=== PATIENT | male | born 1970 | race Caucasian/White ===

== ENCOUNTER 2017-11-17 14:06 | Emergency (ER) | payer SELFPAY ==
[2017-11-17] MEDS ORDERED: Acetaminophen/HYDROcodone 325-10 MG Tab PO ONE (14:40)
--- NOTE | 2017-11-17 14:47 | EDM.PDOC ---
ED HPI GENERAL MEDICAL PROBLEM - General Chief Complaint: Back Pain or Injury Stated Complaint: BACK PAIN Time Seen by Provider: 11/17/17 14:26 Source of Information: Reports: Patient History Limitations: Reports: No Limitations - History of Present Illness INITIAL COMMENTS - FREE TEXT/NARRATIVE: Patient is a 47-year-old male who presents to the ED complaining of low back pain. Patient has a history of chronic low back pain secondary to nerve impingement at the L5-S1 junction. He is scheduled to have a nerve block completed on 25 November in [place]. He was supposed to see his primary care provider Dr. Bautista yesterday at 1330 for additional prescription for narcotics. Patient had to cancel this appt since his work required him to stay longer. Thus has ran out of the hydrocodone 10-325mg. Last prescription was filled October 23, 2017. This was for hydrocodone with acetaminophen 10-325 one tab 3 times a day as needed for pain. May take one extra tablet every day if needed. He had 100 times. Patient states the pain to his low back is no different than previously. Denies any saddle anesthesia or incontinence to urine or stool. There is no numbness/tingling to his lower extremities. Lower Back Pain Score (Numeric/FACES): 8 - Related Data Allergies Allergy/AdvReac Type Severity Reaction Status Date / Time No Known Allergies Allergy Verified 11/17/17 14:13 Home Meds: Home Meds Hydrocodone/Acetaminophen [Hydrocodon-Acetaminophn 10-325] 1 each PO TID PRN # 15 tablet 11/17/17 [Rx] Past Medical History Musculoskeletal History: Reports: Back Pain, Chronic, Other (See Below) Other Musculoskeletal History: chronic pain between shoulder blades, states for years - Past Surgical History HEENT Surgical History: Reports: Tonsillectomy Other Musculoskeletal Surgeries/Procedures:: L5-S1 bone on bone Social & Family History - Family History Family Medical History: Noncontributory - Tobacco Use Smoking Status *Q: Current Every Day Smoker Years of Tobacco use: 25 Packs/Tins Daily: 2 - Caffeine Use Caffeine Use: Reports: Coffee - Recreational Drug Use Recreational Drug Use: No ED ROS GENERAL - Review of Systems Review Of Systems: ROS reveals no pertinent complaints other than HPI. ED EXAM,LOWER BACK PAIN/INJURY - Physical Exam Exam: See Below Exam Limited By: No Limitations General Appearance: Alert, WD/WN, No Apparent Distress Ears: Hearing Grossly Normal Nose: Normal Inspection Throat/Mouth: Normal Voice, No Airway Compromise Neck: Normal Inspection, Supple Respiratory/Chest: No Respiratory Distress, Lungs Clear, Normal Breath Sounds Cardiovascular: Normal Peripheral Pulses, Regular Rate, Rhythm Extremities: Normal Inspection, Normal Range of Motion, Non-Tender Neurological: Alert, Normal Mood/Affect, Normal Dorsiflexion, Normal Plantar Flexion, No Motor/Sensory Deficits, Oriented x 3. No: Straight Leg Raise (L), Straight Leg Raise (R) Psychiatric: Normal Affect, Normal Mood Skin Exam: Warm, Dry, Intact, Normal Color Course - Vital Signs Last Recorded V/S: Last Vital Signs Temp 99.3 F 11/17/17 14:16 Pulse 89 11/17/17 14:16 Resp 16 11/17/17 14:16 BP 131/83 11/17/17 14:16 Pulse Ox 98 11/17/17 14:16 - Orders/Labs/Meds Meds: Medications Discontinued Medications Generic Name Dose Route Start Last Admin Trade Name Adam PRN Reason Stop Dose Admin Hydrocodone Bitart/Acetaminophen 1 tab 11/17/17 14:40 11/17/17 14:53 [place] 325-10 Mg PO 11/17/17 14:41 1 tab ONETIME ONE Administration - Re-Assessments/Exams Free Text/Narrative Re-Assessment/Exam: i did confirm patient had a appt with dr. Bautista for yesterday at 1330. Unable to pull his narcotic prescription list from [place] [facility]. Patient has a ride. Appears patient story is true. According to his prescription if taking 4 a day he would go through the 100 tabs easily. I will provide a short course of hydrocodone 10-325mg. Patient was instructed not to drive today and while taking the narcotics. He has a ride. 5000 Dr. Bautista has called back. Story checks out. Departure - Departure Time of Disposition: 15:20 Disposition: Home, Self-Care 01 Condition: Good Clinical Impression: Chronic low back pain without sciatica Qualifiers: Back pain laterality: bilateral Qualified Code(s): M54.5 - Low back pain - Discharge Information Prescriptions: Hydrocodone/Acetaminophen [Hydrocodon-Acetaminophn 10-325] 1 each PO TID PRN # 15 tablet PRN Reason: Pain Instructions: Back Pain, Adult, Chronic Back Pain Referrals: PCP,Not In Area [Primary Care Provider] - Forms: ED Department Discharge Additional Instructions: Take the hydrocodone as prescribed for severe pain. Suggest utilizing tylenol and ibuprofen in alternating fashion along with heat/ice to the affected area before narcotic use. no driving while taking the narcotics. Do not take the tylenol while taking the hydrocodone. Keep appt for nerve block as scheduled for next week. See PCP for further pain management. Return to the E.D. if you develop any new or worsening symptoms.
== END 2017-11-17 15:42 | disposition home or self-care (01) ==
LOC: JD.ED 14:06
DX: G89.29 Other chronic pain (principal); M54.5 Low back pain; F17.210 Nicotine dependence, cigarettes, uncomplicated
CPT/HCPCS: 99283; A9270